=== PATIENT | male | born 1990 | race Caucasian/White ===

== ENCOUNTER 2020-11-22 14:39 | Emergency (ER) | payer SELFPAY ==
[~2020-11-22] VITALS: Ht 165.1 cm; Wt 63.0 kg
[2020-11-22] MEDS ORDERED: BACITRACIN ZINC OINT UDPKT TOP ONE (15:00)
[2020-11-22] MEDS ORDERED: ACETAMINOPHEN 325MG TABLET PO ONE (15:00)
[2020-11-22] MEDS ORDERED: TETANUS, DIPHTHERIA, PERTUSSIS VAC/PF 0.5ML (>7YR OLD) IM ONE (15:00)
[2020-11-22 15:17] VITALS: BP 138/83
== END 2020-11-22 15:52 | disposition home or self-care (01) ==
LOC: ER 14:39
DX: S61.210A Laceration without foreign body of right index finger without damage to nail, initial encounter (principal); W26.0XXA Contact with knife, initial encounter; Y93.89 Activity, other specified; Y92.018 Other place in single-family (private) house as the place of occurrence of the external cause
CPT/HCPCS: 12002; 90715; 99282